=== PATIENT | female | born 1940 | race Caucasian/White ===

== ENCOUNTER → 2017-02-13 | Outpatient (CLI) | END | disposition home or self-care (01) | DX: M25.561 Pain in right knee (principal); M17.11 Unilateral primary osteoarthritis, right knee; M16.11 Unilateral primary osteoarthritis, right hip; Z96.642 Presence of left artificial hip joint; M25.461 Effusion, right knee; I10 Essential (primary) hypertension | CPT/HCPCS: 73502; 73564; G0463 ==

== ENCOUNTER → 2017-04-04 | Outpatient (CLI) | payer MEDICARE, BC ==
[~2017-04-04] MED LIST: LEVE500S9 PO; TRIA1TAB PO
--- NOTE | 2017-04-04 14:15 | RADRPT ---
Vent Rate: 59 bpm RR Interval: 0 msec IL Interval: 132 msec QRS Duration: 130 msec QT Interval: 474 msec QTC Interval: 469 msec P-R-T Collins: 37 - -20 - 92 degrees Sinus bradycardia with premature atrial complexes Left bundle branch block Abnormal ECG Electronically Signed By: Danny Alonzo [id number]
--- NOTE | 2017-04-04 15:59 | RADRPT ---
PROCEDURE: XR Chest. CLINICAL INDICATION: Bronchitis. Atypical chest pain. TECHNIQUE: Two views. Frontal and lateral. COMPARISON: 03/03/2016. FINDINGS: The lungs are clear. The heart size is normal. There is no pleural effusion. There is no pneumothorax. IMPRESSION: 1. Normal chest radiograph. RPTAT: QQ .Doyle Mari MD, MD Date Time Electronically viewed and signed by .Doyle Mari MD, MD on 04/04/2017 15:59 .R/
== END | disposition home or self-care (01) ==
LOC: LAB 12:26
PROVIDERS: ATTEND Internal Medicine
DX: J20.9 Acute bronchitis, unspecified (principal); R07.89 Other chest pain; R00.1 Bradycardia, unspecified; I44.7 Left bundle-branch block, unspecified; R94.31 Abnormal electrocardiogram [ECG] [EKG]
CPT/HCPCS: 71020; 93005

== ENCOUNTER → 2017-04-10 | Outpatient (CLI) | payer MEDICARE, BC | END | disposition home or self-care (01) | LOC: HKI 09:32 | PROVIDERS: ATTEND Orthopaedic Surgery | DX: Z01.818 Encounter for other preprocedural examination (principal); I10 Essential (primary) hypertension; E78.00 Pure hypercholesterolemia, unspecified; M16.11 Unilateral primary osteoarthritis, right hip; Z96.642 Presence of left artificial hip joint | CPT/HCPCS: G0463 ==

== ENCOUNTER 2017-04-18 05:59 | Inpatient (IN) | payer MEDICARE, BC ==
[2017-04-04 13:33] LABS: ADD SCAN DIFF NO
[2017-04-04 13:36] LABS: BASOPHILS % 0.4 % (0.0-2.0); EOSINOPHILS # 0.1 10^3/ul (0.0-0.5); EOSINOPHILS % 1.4 % (0.0-7.0); HEMATOCRIT 39.6 % (37.0-47.0); HEMOGLOBIN 13.2 g/dl (12.0-16.0); LYMPHOCYTES # 1.7 10^3/ul (0.8-2.9); LYMPHOCYTES % 33.8 % (15.0-51.0); MEAN CORPUSCULAR HEMOGLOBIN 29.3 pg (29.0-33.0); MEAN CORPUSCULAR HGB CONC 33.3 g/dl (32.0-37.0); MEAN CORPUSCULAR VOLUME 87.8 fl (82.0-101.0); MONOCYTE # 0.3 10^3/ul (0.3-0.9); MONOCYTES % 6.7 % (0.0-11.0); NEUTROPHIL # 2.8 10^3/ul (1.6-7.5); NEUTROPHILS % 57.5 % (39.0-77.0); PLATELET COUNT 183 10^3/UL (140-415); RED BLOOD COUNT 4.51 10^6/ul (4.20-5.40); RED CELL DISTRIBUTION WIDTH 12.5 % (11.5-14.5); WHITE BLOOD COUNT 4.9 10^3/ul (4.8-10.8)
[2017-04-04 13:45] LABS: ADD UMIC NO; URINE BILIRUBIN (Dip) NEGATIVE (NEGATIVE); URINE BLOOD (Dip) NEGATIVE (NEGATIVE); URINE COLOR LT. YELLOW (YELLOW); URINE GLUCOSE (Dip) NEGATIVE (NEGATIVE); URINE KETONES (Dip) NEGATIVE (NEGATIVE); URINE LEUKOCYTE ESTERASE (Dip) NEGATIVE (NEGATIVE); URINE NITRITE (Dip) NEGATIVE (NEGATIVE); URINE TOTAL PROTEIN (Dip) NEGATIVE (NEGATIVE); URINE UROBILINOGEN (Dip) 0.2 E.U./dL (0.1-1.0)
[2017-04-04 13:53] LABS: INR 1.02; PARTIAL THROMBOPLASTIN TIME 28.1 Sec (25.0-35.0); PROTIME 13.4 Sec (12.2-14.2)
[2017-04-04 13:57] LABS: ALBUMIN 4.3 g/dl (3.3-4.9); ALBUMIN/GLOBULIN RATIO 1.59; BILIRUBIN,INDIRECT 0.3 mg/dl (0-1.1); BILIRUBIN,TOTAL 0.3 mg/dl (0.2-1.3); CALCIUM 10.1 mg/dl (8.4-10.2); CREATININE 0.59 mg/dl (0.44-1.00); POTASSIUM 4.1 mmol/L (3.5-5.1)
--- NOTE | 2017-04-13 17:58 | HP ---
DATE OF ADMISSION: 04/10/2017 HISTORY OF PRESENT ILLNESS: The patient is a 76-year-old lady who is nondiabetic with history of hy perlipidemia; who is being admitted on an elective basis for right total hip replacement per Dr. Vero fitch. The patient has been having persistent recurrent pain, right hip not responding to conservativ e measures. The patient had a left total hip replacement several years ago. REVIEW OF SYSTEMS: HEAD: History of chronic headaches. History of seizures 5 years ago for which he had been put on L evetiracetam 500 mg p.o. b.i.d. no recent seizures. EYES: No blurry vision or glaucoma. ENT: Noncontributory, status post tonsillectomy. NECK: No history of thyroid disease. CHEST: No bronchitis, hay fever, or asthma. The patient does not smoke. CARDIOVASCULAR: No chest pain, palpitations or shortness of breath. Treadmill done 1 year ago was normal. History of hyperlipidemia with statin intolerance. No history of VA or angina. GASTROINTESTINAL: No constipation, diarrhea, change in bowel habits. Colonoscopy 15 years ago. Th e patient has had recent nausea a GI evaluation was negative. GENITOURINARY: No dysuria, hematuria, kidney stones. GENERAL: History of weight loss of about 15 pounds in the last 2 to 3 years intentional, sleep norm al. No history of snoring. SKIN: No history of any lesions. MEDICATIONS: Include; Triamterene 37.5 half tablet p.o. every day Levetiracetam 500 mg p.o. b.i.d., Advil on a p.r.n. basi s. ALLERGIES: MORPHINE TO TAPE AND STATIN INTOLERANCE. FAMILY HISTORY: Negative for diabetes, hypertension in father. Mother had cancer, exact details no t clear. 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 HABITS: Does not smoke or drink. PHYSICAL EXAMINATION The patient is a very pleasant lady in no acute distress. VITAL SIGNS: Blood pressure 130/70, respiratory 20 per minute, pulse 80 per minute regular. HEENT: Head normocephalic. No pallor, cyanosis, or icterus. Tongue is coated, dry. NECK: Supple. No thyromegaly, bruits or lymphadenopathy. LUNGS: Clinically clear. HEART: S1, S2 heard with no definite gallops or murmurs. ABDOMEN: Soft, nontender, no hepatosplenomegaly. EXTREMITIES: No edema. Pedal pulsations 2+ bilaterally. Homans sign is negative. NEUROLOGIC: No localizing or lateralizing signs. PELVIC, RECTAL, BREAST: Deferred at patient's request. LABORATORY DATA: Initial WBC count 4.9, hematocrit 39.6, platelet count of 188,000. Sodium 141, po tassium 4.1, glucose 94, BUN 13, creatinine 0.59. PT/INR 1.02, PTT 28.1. Sed rate 10. UA shows ne gative for glucose and protein, negative for leukocyte esterase. MRSA screen, nares negative for MR SA. EKG shows sinus bradycardia with PACs, left bundle branch block. Chest x-ray shows normal size heart, lung cal[place]oun clear. IMPRESSION: 1. Severe degenerative joint disease of the right hip for total hip replacement per Dr. Kessler. 2. Seizure disorder. PLAN: The patient's overall medical condition is stable. I have discussed the patient's medical st atus with Dr. JOSE ____. Dictated By: MARISA MARTINEZ MD SR/NTS Conf#: [id number] DID#: [id number]
[2017-04-17 09:15] VITALS: BMI 23.0
[2017-04-18] VITALS (26 sets, daily range): BP systolic 98–124; BP diastolic 48–71; PULSE 53–83; RESP 13–23; Ht 157.5 cm; Wt 58.0 kg
[~2017-04-18] VITALS: Ht 157.5 cm; Wt 58.0 kg
[2017-04-18] MEDS ORDERED: CELECOXIB 400 MG PO X1 DOSE PO ONE (06:00)
[2017-04-18] MEDS ORDERED: CEFAZOLIN 2GM/50 ML (PMX) 50 ML X1 BEFORE INCISION IVPB ONE (06:00)
[2017-04-18] MEDS ORDERED: oxyCODONE (CR) 10 MG TAB [oxyCONTIN] X1 DOSE PO ONE (06:00)
[2017-04-18] MEDS ORDERED: BUPIVACAINE LIPOSOME/PF 266 MG/20 ML VIAL INFIL ONE (06:00)
[2017-04-18] MEDS ORDERED: PAIN COCKTAIL-CEFUROXIME IRR ONE ×7 (06:00)
[2017-04-18] MEDS ORDERED: traMADOL 50 MG TAB X 1 DOSE PO ONE (06:00)
[2017-04-18] MEDS ORDERED: TRANEXAMIC ACID 570 MG in SOD CHLORIDE 0.9% 94.3 ML IV ONE (06:00)
[2017-04-18] MEDS ORDERED: PREGABALIN 300 MG PO X1 PO ONE (06:00)
[2017-04-18] MEDS: LACTATED RINGER'S 1,000 ML IV SCH ×5 (06:23→23:05)
[2017-04-18] MEDS ORDERED: VANCOMYCIN 1 GM INJ ONE (06:50)
[2017-04-18] MEDS ORDERED: POLYMYXIN B 500000 UNIT INJ ONE (06:50)
--- NOTE | 2017-04-18 07:11 | HPN ---
Date/Time of Note Date/Time of Note DATE: 04/18/17 TIME: 07:10 Interval H&P Admission Note Pt. seen H&P reviewed: No system changes No changes from H&P on 04/13/17 by HERNANDEZ Longoria MD April 18, 2017 07:10
[2017-04-18] MEDS ORDERED: ONDANSETRON 4 MG INJ ONE (07:13)
[2017-04-18] MEDS ORDERED: GLYCOPYRROLATE 0.4 MG INJ ONE (07:13)
[2017-04-18] MEDS ORDERED: DEXAMETHASONE 4 MG/ML 1 ML INJ ONE (07:13)
[2017-04-18] MEDS ORDERED: FENTAnyl 50 MCG/ML VIAL ONE (07:13)
[2017-04-18] MEDS ORDERED: CEFAZOLIN 1 GM INJ ONE (07:13)
[2017-04-18] MEDS ORDERED: ROCURONIUM 50 MG INJ ONE (07:13)
[2017-04-18] MEDS ORDERED: MIDAZOLAM 1 MG/ML 2 ML INJ ONE (07:13)
[2017-04-18] MEDS ORDERED: PROPOFOL 20 ML ONE (07:13)
[2017-04-18] MEDS ORDERED: NEOSTIGMINE 3 MG/3 ML SYRINGE ONE (07:13)
[2017-04-18] MEDS ORDERED: PROPOFOL 100 ML ONE (08:10)
[2017-04-18] MEDS ORDERED: BACITRACIN 50000 UNITS INJ IRR ONE (08:16)
[2017-04-18] MEDS ORDERED: DIPHENHYDRAMINE 50 MG INJ IV PRN (08:30)
[2017-04-18] MEDS ORDERED: MEPERIDINE 25 MG INJ IV PRN (08:30)
[2017-04-18] MEDS ORDERED: FENTAnyl 50 MCG/ML VIAL IV PRN ×3 (08:30)
[2017-04-18] MEDS ORDERED: ONDANSETRON 4 MG INJ IV PRN ×2 (08:30→10:00)
[2017-04-18] MEDS ORDERED: EPHEDrine SULFATE 50 MG/5 ML SYG IV PRN (08:30)
[2017-04-18] MEDS ORDERED: TRIMETHOBENZAMIDE 100 MG/ML VIAL IM PRN (08:30)
[2017-04-18] MEDS ORDERED: MIDAZOLAM 1 MG/ML 2 ML INJ IV PRN (08:30)
[2017-04-18] MEDS ORDERED: HYDROmorphONE (0.2 MG/ML) 10ML SYG IV PRN ×3 (08:30)
[2017-04-18] MEDS ORDERED: hydrALAzine 20 MG INJ IV PRN (08:30)
[2017-04-18] MEDS ORDERED: LABETALOL HCL 20MG INJ IV PRN (08:30)
[2017-04-18] MEDS: TRANEXAMIC ACID 570 MG in SOD CHLORIDE 0.9% 100 ML IVPB ONE ×3 (09:25)
[2017-04-18] MEDS ORDERED: HYDROmorphONE 1 MG/ML SYG IV PRN (10:00)
[2017-04-18] MEDS ORDERED: DIPHENHYDRAMINE 25 MG CAP PO PRN (10:00)
[2017-04-18] MEDS ORDERED: HYDROCODONE/APAP (5/325) TAB PO PRN (10:00)
[2017-04-18] MEDS ORDERED: BISACODYL 10 MG SUPP PR PRN (10:00)
[2017-04-18] MEDS ORDERED: NACL 0.9% 3 ML SYG IV SCH (10:00)
[2017-04-18] MEDS ORDERED: NA PHOSPHATE/BIPHOS 133 ML ENEMA PR PRN (10:00)
[2017-04-18] MEDS ORDERED: ASPIRIN (EC) 325 MG TAB PO ONE (10:00)
[2017-04-18] MEDS ORDERED: MAGNESIUM HYDROXIDE 30ML CUP PO PRN (10:00)
--- NOTE | 2017-04-18 10:01 | PN ---
Date/Time of Note Date/Time of Note DATE: 04/18/17 TIME: 09:59 Assessment/Plan Lines/Catheters IV Catheter Type (from Nrsg): Peripheral IV Assessment/Plan Assessment/Plan Stable in PACU, s/p right anterior JOSELITO -continue Ancef until drain removed -pain meds as needed -ASA/SCDs for DVT prophylaxis -OOB with PT -check AM labs -monitor drain -d/c razo in AM XR of the right hip is pending at this time Subjective 24 Hr Interval Summary Stable in PACU. Denies pain. Drowsy from anesthesia. Moving lower extremities. Exam/Review of Systems Vital Signs Vitals Vital Signs Date Time Temp Pulse Resp B/P Pulse Ox O2 Delivery O2 Flow Rate FiO2 04/18/17 05:45 98.2 69 124/71 94 Room Air Intake and Output 04/17/17 04/17/17 04/18/17 15:00 23:00 07:00 Intake Total 105.7 ml Balance 105.7 ml Exam Free Text/Dictation Hemovac: minimal Dressing dry Incision clean, dry, and intact without redness or drainage 5/5 Quadriceps, Tibialis Anterior, EHL, Gastroc, Soleus, Peroneals Normal sensation Palpable DT/PT, CR <2 sec No distal edema JEANNETTE CARVAJAL PA-C April 18, 2017 10:01
[2017-04-18] MEDS: CEFAZOLIN 2 GM/50 ML (PMX) 50 ML IVPB SCH ×2 (10:12→17:32)
--- NOTE | 2017-04-18 10:13 | OPR ---
Date/Time of Note Date/Time of Note DATE: 04/18/17 TIME: 10:12 Operative Report Free Text/Dictation Dictation # [id number] Procedure Date: April 18, 2017 Preoperative Diagnosis Right Hip OA Postoperative Diagnosis Same Operation Performed Right Anterior JOSELITO Surgeon: HERNANDEZ AARON MD school psychologist assistant: JEANNETTE CARVAJAL PA-C Anesthesia: general, spinal Anesthesiologist: Navdeep Granados M.D. Estimated Blood Loss: 250 - 300 ml's Specimens Femoral Head Tubes/Drains Hemovac x 1 Complications: None Pt Condition Post Procedure: stable Disposition: PACU HERNANDEZ AARON MD April 18, 2017 10:13
[2017-04-18 10:26] LABS: HEMATOCRIT 28.1 % (37.0-47.0); HEMOGLOBIN 9.9 g/dl (12.0-16.0)
--- NOTE | 2017-04-18 10:44 | OPR ---
DATE OF OPERATION: 04/18/2017 PREOPERATIVE DIAGNOSIS: Right hip osteoarthritis. POSTOPERATIVE DIAGNOSIS: Right hip osteoarthritis. PROCEDURE PERFORMED: Right anterior total hip arthroplasty. SURGEON: Hernandez Kessler MD WATERWORKS CHIEF ENGINEER: CJ Flanagan COMPONENTS USED: DePuy size 52 mm Gription [place] cup, 52/36 neutral AltrX polyethylene liner, on e 6.5 mm screw, size 6 standard ACTIS stem, 36 plus 1.5 ceramic head. ANESTHESIA: Spinal plus general endotracheal intubation, plus periarticular injection. ANESTHESIOLOGIST: Navdeep Granados MD ESTIMATED BLOOD LOSS: 400 mL. INTRAVENOUS FLUIDS: 3 liters crystalloid. SPECIMENS: Femoral head. DRAINS: Hemovac x1. COMPLICATIONS: None. DISPOSITION: The patient tolerated procedure well and was taken to the recovery room in stable cond ition. INDICATIONS: The patient is a 76-year-old woman who has had progressive worsening pain in the right hip with radiographic evidence of severe osteoarthritis. She has failed nonsurgical means of treat ment to control her pain including activity modifications, pain medications and ambulatory assist de vices. Despite these measures, she has had worsening pain and I felt she would benefit from a total hip arthroplasty through an anterior approach. The risks, benefits, and alternatives of the procedure were explained in detail to the patient. I e xplained the risks of the surgery to include, but not be limited to: bleeding and possible need for blood transfusion; infection; pain; stiffness; neurovascular injury with possible numbness, weakness , and/or paralysis anywhere from the hip down to the toes; fracture; instability; dislocation; leg l ength inequality; wear and/or loosening of the prosthesis and possible need for future revision; blo od clots; pulmonary embolism; and anesthetic complications such as heart attack, stroke, GI bleed, p neumonia, and/or . Ample time was allowed for the patient to ask questions, all of which were addressed and answered. The patient understood the risks involved and wished to proceed. Informed c onsent was signed prior to the procedure. PROCEDURE: The patient's right hip was initialed with a marking pen in the preoperative area to iden tify the correct operative site. The patient was brought to the operating room and transferred [facility] the [facility] to the [facility] where a spinal anesthetic was administered. The patient was then anesthetized and intubated. A Naidu catheter was placed. Both feet were placed into well padd ed boots which were then placed into the leg holders of the traction booms. A timeout was performed to confirm that the right side was the correct operative site. The patient was given 2 g of intrav enous Ancef within one hour prior to the procedure. The operative hip was prepped and draped in the usual sterile fashion. A 10 cm oblique incision was made over the anterior aspect of the hip and carried down through subcu taneous tissue and fat with sharp dissection. The tensor fascia del was incised along the length o f the wound. The tensor fascia muscle was retracted laterally and the sartorius medially. The anter ior circumflex vessels were identified and tied off with 2-0 silk suture and coagulated with the [employer] anthony Link facing end trimmer. The rectus femoris was elevated off the anterior capsule and an anterior capsu lectomy performed. A femoral neck osteotomy was made and the head removed from the acetabulum. The acetabulum was denuded of cartilage circumferentially, as was the femoral head. Retractors were pl aced around the acetabulum. The remnants of the labrum and ligamentum teres were excised. I reamed the acetabulum to the medial wall and then went into an anatomic position and increased the reamer size in 2 mm increments until I got a good bite and was down to bleeding subchondral bone. The [place] cup was opened and impacted into the acetabulum and sat flush circumferentially, gettin g a good bite. C-arm imaging showed it had about 40 to 45 degrees of abduction and 20 degrees of ant eversion. Please note 1 acetabular screw was placed. The real liner was opened and impacted into t he acetabulum and sat flush circumferentially. Attention was turned towards the femur. The operative leg was carefully lowered to the floor with the leg adducted. The foot was then exter susan rotated to approximately 110 degrees. A posteromedial release was performed to optimize expos ure. The femoral hook was placed underneath the proximal femur and the hydraulic lift was then used to elevate the femur up out of the wound. The inocencio cutter osteotome was used to remove the remai demarco overhanging greater trochanter. The femur was then broached, going up in one size increments u ntil it sat flush with the neck cut and a stable fit was achieved. The trial neck and head were ass embled and reduced into the acetabulum. Fluoroscopic imaging showed the components to be in good pos ition and the leg lengths and offsets to be equal. At this point, the trial was dislocated and the trial broach removed. The canal was irrigated and d ried. The real stem was opened and impacted into the femur. The trunnion was irrigated and dried, a nd the real femoral head was impacted onto the trunnion, and reduced into the acetabulum. The soft tissues were infiltrated with a mixture of 150 mg of 0.5% bupivacaine, 8 mg of Duramorph, 3 00 mcg of epinephrine, 30 mg of Toradol, 100 mcg of clonidine, 750 mg of cefuroxime and 86 mL of nor mal saline, followed by an injection of 266 mg of liposomal bupivacaine. At this point the hip was irrigated with a mixture of Betadine/saline and then antibiotic saline with pulsatile lavage. A Hem ovac drain was placed in the deep portion of the wound and brought out the anterolateral thigh. Ther e was good hemostasis. The tensor fascia del was repaired with a running #1 Vicryl. The deep fat layer was irrigated and closed with 2-0 Stratafix and the subcutaneous layer closed with 3-0 Vicryl and the skin was closed with ross and then sealed with Dermabond. The drain was secured with 3-0 nylon. The sponge and needle counts were correct at the end of the case. The wound was covered with an occ lusive dressing. The patient was awakened, extubated, and taken to the recovery room in stable cond ition. Dictated By: HERNANDEZ CLEARY/NONA Conf#: [id number] DID#: [id number]
[2017-04-18 10:47] LABS: CALCIUM 8.6 mg/dl (8.4-10.2); CREATININE 0.54 mg/dl (0.44-1.00); POTASSIUM 3.2 mmol/L (3.5-5.1)
--- NOTE | 2017-04-18 11:02 | RADRPT ---
PROCEDURE: XR Pelvis. CLINICAL INDICATION: Recent right hip arthroplasty TECHNIQUE: Single AP view of the pelvis. COMPARISON: 02/13/2017 FINDINGS: There is a recent right hip arthroplasty in place with anatomic alignment. No acute fracture or dis location is seen. Postsurgical skin ross and soft tissue gas and drainage catheter is seen. Rem ainder of the pelvis appears intact without evidence of fractures or dislocation. Prior left hip to abel arthroplasty is noted.. Sacroiliac joints and pubic symphysis are unremarkable. IMPRESSION: Recent right hip arthroplasty. Old left hip arthroplasty. RPTAT: JJ .Roc Diez MD, Date Time Electronically viewed and signed by .Roc Diez MD, on 04/18/2017 11:01 .Morro/
[2017-04-18] MEDS: traMADol 50 MG TAB PO SCH ×3 (11:35→23:03)
[2017-04-18] MEDS ORDERED: EXPAREL NOTE (BUPIVICAINE LIPOSOMAL) XX SCH (12:00)
--- NOTE | 2017-04-18 12:05 | RADRPT ---
PROCEDURE: Right hip series CLINICAL INDICATION: Right hip arthroplasty TECHNIQUE: Single AP view of the right hip is submitted COMPARISON: 02/13/2017 FINDINGS: There has been recent right hip arthroplasty with anatomic alignment. No evidence of fractures or d islocation.. Postsurgical changes with skin ross, drainage catheter and soft tissue gas are prese nt. Visualized portions of the pelvis are intact. IMPRESSION: Recent right hip arthroplasty. RPTAT: JJ .Roc Diez MD, MD Date Time Electronically viewed and signed by .Roc Diez MD, MD on 04/18/2017 12:04 .L/
--- NOTE | 2017-04-18 12:06 | RADRPT ---
PROCEDURE: Fluoroscopy CLINICAL INDICATION: XR Hip in Surgery Right TECHNIQUE: 0.8 minutes fluoroscopic time utilized by Dr. AARON for procedure. 16 images/sequences of are submitted. COMPARISON: None FINDINGS: Right hip total arthroplasty in progress is demonstrated. Old left hip arthroplasty in place. IMPRESSION: Fluoroscopy utilized by Dr. AARON for right hip arthroplasty Please see procedural report for complete details. RPTAT: JJ .Roc Diez MD, MD Date Time Electronically viewed and signed by .Roc Diez MD, on 04/18/2017 12:05 .L/
[2017-04-18] MEDS ORDERED: TRANEXAMIC ACID 580 MG in SOD CHLORIDE 0.9% 100 ML IVPB ONE ×2 (13:00→16:00)
[2017-04-18] MEDS ORDERED: POTASSIUM CHLORIDE (SR) 20 MEQ TAB PO STA (16:37)
[2017-04-18] MEDS: PANTOPRAZOLE (EC) 40 MG TAB PO SCH (17:32)
[2017-04-18] MEDS: DOCUSATE SODIUM 100 MG CAP PO SCH (20:28)
[2017-04-18] MEDS: LEVETIRACETAM (100 MG/ML) 5ML CUP PO SCH (20:29)
[2017-04-18] MEDS ORDERED: POTASSIUM CHLORIDE (SR) 20 MEQ TAB PO ONE (21:00)
--- NOTE | 2017-04-18 22:17 | PN ---
DATE: SUBJECTIVE: Detailed previous history reviewed. The patient was examined. The patient is status p ost right anterior total hip arthroplasty by Dr. Kessler. The patient was seen postop. The patient appears comfortable, complains of mild blurry vision which is improving. Denies any chest pain or s hortness of breath. PHYSICAL EXAMINATION: VITAL SIGNS: The patient is afebrile. Blood pressure 123/60. O2 saturation is 100% on 2 L nasal c annula. HEAD: Normocephalic. Mild pallor without cyanosis. CHEST: Clinically clear. HEART: S1, S2 with no definite gallops. EXTREMITIES: No edema. Homans negative. LABORATORY: WBC count ____, hematocrit 39.6 on 04/04, and repeat hemoglobin is 9.9 with hematocrit 28.1 today. Sodium 136, potassium 3.2, BUN 10, creatinine 0.54. IMPRESSION: 1. Severe degenerative joint disease of the right hip, status post right total hip replacement. 2. Seizure disorder. 3. Mild anemia. 4. Hypokalemia. PLAN: Will replace potassium levels. Recheck potassium and magnesium and hematocrit in a.m. The p atient has been on Keppra, continue the same. Seizure precautions. Dictated By: MARISA MARTINEZ MD SR/NTS Conf#: [id number] DID#: [id number]
[2017-04-19] MEDS: CEFAZOLIN 2 GM/50 ML (PMX) 50 ML IVPB SCH (01:08)
[2017-04-19 05:06] LABS: HEMATOCRIT 26.7 % (37.0-47.0); HEMOGLOBIN 9.3 g/dl (12.0-16.0)
[2017-04-19 05:25] LABS: POTASSIUM 4.5 mmol/L (3.5-5.1)
[2017-04-19 05:27] LABS: CREATININE 0.67 mg/dl (0.44-1.00)
[2017-04-19 05:28] LABS: CALCIUM 8.9 mg/dl (8.4-10.2)
[2017-04-19] MEDS: PANTOPRAZOLE (EC) 40 MG TAB PO SCH ×2 (05:28→17:28)
[2017-04-19] MEDS: traMADol 50 MG TAB PO SCH ×3 (05:28→17:29)
[2017-04-19 05:39] LABS: CHOL/HDL RATIO 3.2 RATIO
[2017-04-19 05:40] VITALS: BP 116/56; PULSE 67; RESP 18
[2017-04-19 07:00] VITALS: BP 110/56; RESP 16
[2017-04-19] MEDS: HYDROCODONE/APAP (5/325) TAB PO PRN ×2 (07:42→21:35)
[2017-04-19] MEDS: DOCUSATE SODIUM 100 MG CAP PO SCH ×2 (08:26→19:57)
[2017-04-19] MEDS: LEVETIRACETAM (100 MG/ML) 5ML CUP PO SCH ×2 (08:26→19:57)
[2017-04-19] MEDS: ASPIRIN (EC) 325 MG TAB PO SCH ×2 (08:26→19:57)
[2017-04-19] MEDS: CELECOXIB 200 MG CAP PO SCH (08:27)
--- NOTE | 2017-04-19 08:40 | PN ---
Date/Time of Note Date/Time of Note DATE: 04/19/17 TIME: 08:38 Assessment/Plan Lines/Catheters IV Catheter Type (from Nrsg): Peripheral IV Naidu in Place (from Nrsg): Yes Assessment/Plan Assessment/Plan Stable POD #1, s/p right anterior JOSELITO -d/c Ancef -pain meds as needed -ASA/SCDs for DVT prophylaxis -OOB with PT -check AM labs -drain removed -discharge planning. Will plan to go home upon discharge Subjective 24 Hr Interval Summary No acute overnight events. Having minimal pain. Started PT yesterday. H&H dropped slightly but will monitor for now. VSS, afebrile. Will plan to go home upon discharge. Exam/Review of Systems Vital Signs Vitals Vital Signs Date Time Temp Pulse Resp B/P Pulse Ox O2 Delivery O2 Flow Rate FiO2 04/19/17 07:00 98.8 75 16 110/56 100 04/19/17 05:40 Nasal Cannula 2.0 Intake and Output 04/18/17 04/18/17 04/19/17 15:00 23:00 07:00 Intake Total 3311.5 ml 1215.8 ml 1750 ml Output Total 550 ml 1000 ml 1500 ml Balance 2761.5 ml 215.8 ml 250 ml Exam Free Text/Dictation Hemovac: 200cc Dressing dry Incision clean, dry, and intact without redness or drainage 03/31 Quadriceps, Tibialis Anterior, EHL, Gastroc, Soleus, Peroneals Normal sensation Palpable DT/PT, CR <2 sec No distal edema Results Result Diagram: 04/19/17 0415 04/19/17 0415 JEANNETTE CARVAJAL PA-C April 19, 2017 08:40
[2017-04-19] MEDS: LACTATED RINGER'S 1,000 ML IV SCH ×2 (09:24→16:50)
[2017-04-19] MEDS: TRIAMTERENE/HCTZ (37.5/25) TAB PO SCH (09:26)
[2017-04-19] MEDS ORDERED: MAGNESIUM SULFATE 2 GM/50 ML 50 ML IVPB ONE (11:00)
--- NOTE | 2017-04-19 13:50 | PN ---
DATE: SUBJECTIVE: The patient overall feels better. Drains have been removed status post right anterior JOSELITO. OBJECTIVE: VITAL SIGNS: Temperature 97.9, blood pressure 116/56, O2 saturation is 100% on 2 liters nasal cannu la. HEENT: Mild pallor without cyanosis. Tongue coated, dry. NECK: Supple. No thyromegaly, bruits or lymphadenopathy. LUNGS: Clinically clear. HEART: S1, S2 heard with no definite gallops. EXTREMITIES: No edema. Homans sign is negative. LABORATORY DATA: Hemoglobin is 9.3, hematocrit 26.7. Potassium 4.5 after replacement. Magnesium i s 1.8. Glucose of 172. LDL 105. IMPRESSION: 1. Status post right total hip replacement (anterior). 2. Moderate anemia. 3. Seizure disorder. 4. Hypokalemia, resolved. 5. Borderline magnesium levels. PLAN: Replace magnesium levels and repeat CBC and BMP in a.m. along with magnesium. Orthopedic rec ommendations per Dr. Kessler. Dictated By: MARISA MARTINEZ MD, SR/NONA Conf#: [id number] DID#: [id number]
[2017-04-19 20:42] VITALS: BP 128/58; RESP 20
[2017-04-20] MEDS: LACTATED RINGER'S 1,000 ML IV SCH ×3 (01:49→17:49)
[2017-04-20 05:14] LABS: ADD SCAN DIFF NO
[2017-04-20 05:22] LABS: ABNORMAL IP MESSAGE 1; HEMATOCRIT 28.1 % (37.0-47.0); HEMOGLOBIN 9.2 g/dl (12.0-16.0); MEAN CORPUSCULAR HEMOGLOBIN 29.7 pg (29.0-33.0); MEAN CORPUSCULAR HGB CONC 32.7 g/dl (32.0-37.0); MEAN CORPUSCULAR VOLUME 90.6 fl (82.0-101.0); MEAN PLATELET VOLUME 13.1 fl (7.4-10.4); PLATELET COUNT 117 10^3/UL (140-415); RED CELL DISTRIBUTION WIDTH 13.2 % (11.5-14.5); WHITE BLOOD COUNT 7.7 10^3/ul (4.8-10.8)
[2017-04-20] MEDS: PANTOPRAZOLE (EC) 40 MG TAB PO SCH ×2 (05:37→18:22)
[2017-04-20] MEDS: traMADol 50 MG TAB PO SCH ×4 (05:38→18:22)
[2017-04-20 06:10] LABS: CALCIUM 8.9 mg/dl (8.4-10.2); CREATININE 0.6 mg/dl (0.44-1.00)
[2017-04-20 08:03] VITALS: BP 116/59; RESP 18
[2017-04-20] MEDS: CELECOXIB 200 MG CAP PO SCH (08:37)
[2017-04-20] MEDS: DOCUSATE SODIUM 100 MG CAP PO SCH ×2 (08:37→20:21)
[2017-04-20] MEDS: LEVETIRACETAM (100 MG/ML) 5ML CUP PO SCH ×2 (08:37→20:21)
[2017-04-20] MEDS: ASPIRIN (EC) 325 MG TAB PO SCH ×2 (08:37→20:21)
[2017-04-20] MEDS: TRIAMTERENE/HCTZ (37.5/25) TAB PO SCH (08:38)
[2017-04-20 09:04] LABS: EOSINOPHILS % 0.8 % (0.0-7.0); LYMPHOCYTES % 18.7 % (15.0-51.0); MONOCYTES % 10.1 % (0.0-11.0); NEUTROPHILS % 69.8 % (39.0-77.0)
[2017-04-20 09:05] LABS: BASOPHILS % 0.3 % (0.0-2.0); EOSINOPHILS # 0.1 10^3/ul (0.0-0.5); LYMPHOCYTES # 1.4 10^3/ul (0.8-2.9); MONOCYTE # 0.8 10^3/ul (0.3-0.9); NEUTROPHIL # 5.4 10^3/ul (1.6-7.5); TOTAL CELLS COUNTED % 100
[2017-04-20] MEDS ORDERED: MAGNESIUM CITRATE 300 ML BTL PO ONE (14:00)
[2017-04-20] MEDS: HYDROCODONE/APAP (5/325) TAB PO PRN (16:16)
--- NOTE | 2017-04-20 17:58 | PN ---
Date/Time of Note Date/Time of Note DATE: 04/20/17 TIME: 17:57 Assessment/Plan Lines/Catheters IV Catheter Type (from Nrsg): Saline Lock Naidu in Place (from Nrsg): Yes Assessment/Plan Assessment/Plan Stable POD #2, s/p right anterior JOSELITO -pain meds as needed -ASA/SCDs -OOB with PT -check AM labs -dressing changed -likely will go home tomorrow Subjective 24 Hr Interval Summary No acute overnight events. Pain well controlled with pain medicine. Progressing with PT. VSS, afebrile. Will plan to go home tomorrow. Exam/Review of Systems Vital Signs Vitals Vital Signs Date Time Temp Pulse Resp B/P Pulse Ox O2 Delivery O2 Flow Rate FiO2 04/20/17 08:36 98.8 04/20/17 08:03 82 18 116/59 96 04/19/17 05:40 Nasal Cannula 2.0 Intake and Output 04/19/17 04/19/17 04/20/17 15:00 23:00 07:00 Intake Total 300 ml 560 ml 850 ml Output Total 450 ml 1200 ml Balance 300 ml 110 ml -350 ml Exam Free Text/Dictation Dressing dry Incision clean, dry, and intact without redness or drainage 03/31 Quadriceps, Tibialis Anterior, EHL, Gastroc, Soleus, Peroneals Normal sensation Palpable DT/PT, CR <2 sec No distal edema Results Result Diagram: 04/20/1742704/20/17427 JEANNETTE CARVAJAL PA-C April 20, 2017 17:58
[2017-04-20 19:49] VITALS: BP 113/59; RESP 19
--- NOTE | 2017-04-20 20:28 | PDOCDIS ---
Discharge Instructions DIAGNOSIS Discharge Diagnosis: s/p right anterior JOSELITO CONDITION Patient Condition: Good HOME CARE INSTRUCTIONS: Diet Instructions: RegularSpecial Diet: REGULAR ACTIVITY: Activity Restrictions: Slowly Increase Activity Rest between Activity Avoid heavy lifting Do not Drive Do not operate Machinery Do not operate Power Tool Avoid Heavy Housework Bathing Restrictions: ShowerActivity Restrictions Comment: waterproof surgical dressing please REFERRALS Agency Name and Phone Number: [facility] [phone] OTHER ORDERS: Other Orders: S/P Anterior JOSELITO Physical Therapy: Three times per week at home x 2 weeks Daily in Rehab/SNF WB STATUS: WBAT Strengthening exercises for both upper and un-operated lower extremities. 1. Gait training with front wheeled walker 2. Wide base gait, no pivot turns. 3. Abductor strengthening. 4. Quadriceps and hamstring strengthening. 5. May switch to cane in contra lateral hand 6 weeks after surgery. 6. Physical Therapy can open case if nursing is not available. 7. Ice Packs while at rest to surgical wound for 20 minutes, 3 times/day. 8. Patient requires mobile SCDs to reduce risk of developing DVT following JOSELITO. Patient will use the mobile SCDs for 30 days postoperatively. Hip Precautions: No posterior hip precautions. Bathing assistance by home health aide twice weekly if Medicare patient. Occupational Therapy: Evaluation for assistive devices and ADL training. Wound Care: Keep incision dry & covered with Tegaderm until first visit with Dr. Kessler Anticoagulation Orders: Enteric Coated Aspirin 325 mg po bid x 6 weeks from date of surgery Follow-up:Call for an appointment with Dr. Kessler in 1 week after discharged from hospital at DME Orders: DESTINEE, 3-in-1 Commode, Mobile SCDs JEANNETTE CARVAJAL PA-C April 20, 2017 20:28
[2017-04-20] MEDS ORDERED: PANT40TA4 PO (20:29)
[2017-04-20] MEDS ORDERED: ASPI325T32 PO (20:29)
[2017-04-20] MEDS ORDERED: TRAM50TA2 PO (20:29)
[2017-04-20] MEDS ORDERED: HYDR-3498 PO (20:29)
[2017-04-21] MEDS: traMADol 50 MG TAB PO SCH ×3 (00:58→11:31)
[2017-04-21] MEDS: LACTATED RINGER'S 1,000 ML IV SCH ×2 (01:49→09:49)
[2017-04-21 04:56] LABS: HEMATOCRIT 28.8 % (37.0-47.0); HEMOGLOBIN 9.5 g/dl (12.0-16.0)
[2017-04-21 05:18] LABS: CALCIUM 8.7 mg/dl (8.4-10.2); CREATININE 0.57 mg/dl (0.44-1.00); POTASSIUM 4.7 mmol/L (3.5-5.1)
[2017-04-21] MEDS: PANTOPRAZOLE (EC) 40 MG TAB PO SCH (06:18)
[2017-04-21 08:04] VITALS: BP 115/62; RESP 18
--- NOTE | 2017-04-21 08:08 | PN ---
DATE: 04/20/2017 SUBJECTIVE: The patient overall feels better. Denies any chest pain or shortness of breath. Compl ains of being constipated. PHYSICAL EXAMINATION: GENERAL: The patient is awake, alert. VITAL SIGNS: Temperature 99.2, blood pressure 116/59, O2 saturation 96% on room air. LUNGS: Clinically clear. HEART: S1, S2 with no gallops. EXTREMITIES: No edema. Homans sign is negative. LABORATORY DATA: WBC count is 7.7, hematocrit 28.1, platelet count of 117,000. Sodium 130, potassi um 5, BUN 11, creatinine 0.6, magnesium 2.1. IMPRESSION: 1. Status post right total hip replacement, anterior approach. 2. Moderate anemia, stable. 3. Seizure disorder. 4. Hypokalemia, resolved. 5. Constipation secondary to narcotic analgesia. PLAN: Recommend magnesium citrate p.o. 1 dose. Continue recommendations per Dr. Kessler. The patie nt has been advised to take iron sulfate p.o. and then get a repeat CBC done with PMD in 1 month. Dictated By: MARISA MARTINEZ MD SR/NTS Conf#: [id number] DID#: [id number]
[2017-04-21] MEDS: DOCUSATE SODIUM 100 MG CAP PO SCH (08:40)
[2017-04-21] MEDS: LEVETIRACETAM (100 MG/ML) 5ML CUP PO SCH (08:40)
[2017-04-21] MEDS: CELECOXIB 200 MG CAP PO SCH (08:40)
[2017-04-21] MEDS: ASPIRIN (EC) 325 MG TAB PO SCH (08:41)
[2017-04-21] MEDS: TRIAMTERENE/HCTZ (37.5/25) TAB PO SCH (08:42)
--- NOTE | 2017-04-21 09:35 | PN ---
DATE: 04/21/2017 SUBJECTIVE: Patient denies any pain. Ambulating well. No calf pain. No shortness of breath or ch est pain. PHYSICAL EXAMINATION: GENERAL: The patient is awake, alert, in no acute distress. VITAL SIGNS: Blood pressure 159/62, temperature 98. CHEST: Clinically clear. HEART: S1, S2 heard, with no definite gallops. ABDOMEN: Soft, nontender. EXTREMITIES: No edema. Homans sign is negative. LABORATORY: Hematocrit 28.8, potassium 4.7. IMPRESSION: 1. Status post right total hip replacement, with moderate anemia. 2. Seizure disorder. The patient is being discharged today. The patient has been advised by Dr. Kessler to take aspirin 3 25 mg b.i.d. Will advise the patient to take a proton pump inhibitor, namely Protonix 40 mg p.o. augusto koch. Will discuss with PMD. Have a followup CBC in 2 weeks. Dictated By: MARISA MARTINEZ MD, SR/NONA Conf#: [id number] DID#: [id number]
--- NOTE | 2017-04-21 09:56 | PN ---
Date/Time of Note Date/Time of Note DATE: 04/21/17 TIME: 09:54 Assessment/Plan Lines/Catheters IV Catheter Type (from Nrsg): Saline Lock Naidu in Place (from Nrsg): Yes Assessment/Plan Assessment/Plan Stable POD #3, s/p right anterior JOSELITO -pain meds as needed -ASA/SCDs for DVT prophylaxis -OOB with PT -dressing changed -discharge home today -follow up in the office in 1 week Subjective 24 Hr Interval Summary No acute overnight events. Denies significant pain. Progressing with PT. VSS, afebrile. Will plan to go home today. Exam/Review of Systems Vital Signs Vitals Vital Signs Date Time Temp Pulse Resp B/P Pulse Ox O2 Delivery O2 Flow Rate FiO2 04/21/17 08:04 98.0 82 18 115/62 94 04/19/17 05:40 Nasal Cannula 2.0 Intake and Output 04/20/17 04/20/17 04/21/17 15:00 23:00 07:00 Intake Total 1140 ml 800 ml Output Total 750 ml Balance 1140 ml 50 ml Exam Free Text/Dictation Dressing dry Incision clean, dry, and intact without redness or drainage 03/31 Quadriceps, Tibialis Anterior, EHL, Gastroc, Soleus, Peroneals Normal sensation Palpable DT/PT, CR <2 sec No distal edema Results Result Diagram: 04/21/17 0415 04/21/17 0415 JEANNETTE CARVAJAL PA-C April 21, 2017 09:56
--- NOTE | 2017-04-21 12:30 | DS ---
DATE OF ADMISSION: 04/18/2017 DATE OF DISCHARGE: 04/21/2017 CONDITION ON DISCHARGE: Stable ADMITTING DIAGNOSIS: Right hip osteoarthritis. DISCHARGE DIAGNOSIS: Status post right anterior total hip arthroplasty. PROCEDURE PERFORMED: Right anterior total hip arthroplasty. HOSPITAL COURSE: This is a 76-year-old female who was seen in the clinic initially complaining of r ight knee pain. X-rays were obtained and demonstrated advanced osteoarthritis of the right hip and it was thought she would benefit from right anterior total hip arthroplasty. On 04/18/2017, the tonny romo was admitted and taken to the operating room where she underwent a right anterior total hip art hroplasty. There were no intraoperative complications. The patient tolerated the procedure well. She was taken to the recovery room in stable condition. Pain was well controlled with oral pain med ication. She was started on aspirin and SCDs for DVT prophylaxis. She remained hemodynamically sta ble and neurovascularly intact throughout her hospital stay. She began physical therapy during her hospital course and continued to make good progress. Ultimately, she was deemed stable for discharg e on postoperative day #3. Prior to discharge, the incision was inspected and noted to be clean, dr y and intact. Dressing changes were done prior to the patient going home. LABORATORY ANALYSIS: Hemoglobin 9.5, hematocrit 28.8. Chemistry panel was essentially within john paul l limits. DISCHARGE MEDICATIONS: 1. [place] 5/325 mg. 2. Tramadol 50 mg 3. Aspirin 325 mg. 4. Protonix 40 mg. Additionally, the patient should resume all of her normal home medications. DISCHARGE INSTRUCTIONS: The patient will be discharged home in stable condition. She is to resume a normal diet. She is weightbearing as tolerated on the right lower extremity. She will begin phys ical therapy with home health. She is to take the medications noted above and resume all of her nor mal home medications. The patient is to call the office or go to the emergency room for any concern s including increased redness, swelling, drainage, fever or any concern regarding the operation or s ite of incision. FOLLOWUP: The patient is to follow up in the office on 04/28/2017. Dictated By: JEANNETTE DIAZ/NONA Conf#: [id number] DID#: [id number]
== END 2017-04-21 12:40 | disposition home health service (06) | DRG 470 ==
LOC: REC 05:59 → MS1 11:07
PROVIDERS: ADMIT Orthopaedic Surgery; ATTEND Orthopaedic Surgery
PROC: 0SR904A Replacement of Right Hip Joint with Ceramic on Polyethylene Synthetic Substitute, Uncemented, Open Approach (ICD-10-PCS; principal; 2017-04-18 07:00)
DX: M16.11 Unilateral primary osteoarthritis, right hip (principal); G40.909 Epilepsy, unspecified, not intractable, without status epilepticus; D64.9 Anemia, unspecified; E78.5 Hyperlipidemia, unspecified; E87.6 Hypokalemia; K59.03 Drug induced constipation; T40.605A Adverse effect of unspecified narcotics, initial encounter; Y92.230 Patient room in hospital as the place of occurrence of the external cause
CPT/HCPCS: 72170; 73500; 73530; 80048; 80053; 80061; 81003; 83735; 85014; 85018; 85025; 85610; 85651; 85730; 86850; 86900; 86901; 86920; 87081; 87086; 88304; 88311; 97003; 97110; 97116; 97162; 97166; 97530; 97535; C1713; C1776; C9290; J0171; J0690; J0697; J0735; J1100; J1170; J1885; J2250; J2274; J2405; J2710; J3010; J3370; J3475; J7120

== ENCOUNTER → 2017-04-28 | Outpatient (CLI) | payer MEDICARE, BC ==
[~2017-04-28] MED LIST changes: +ASPI325T32 PO; +HYDR-3498 PO; +PANT40TA4 PO; +TRAM50TA2 PO
--- NOTE | 2017-04-28 10:51 | RADRPT ---
PROCEDURE: XR pelvis/right hip. CLINICAL INDICATION: Hip pain TECHNIQUE: AP pelvis/lateral right hip view available for review. COMPARISON: No prior studies are available for comparison. FINDINGS: There are bilateral total hip replacements. There are skin ross lateral to the right hip. There is normal mineralization, architecture and alignment. There is no evidence of loosening of th e prosthesis. There is no evidence of hardware failure. No fractures, dislocation or osseous lesions are identified. The joints are unremarkable. There are normal soft tissues. IMPRESSION: Bilateral total hip replacements. Otherwise unremarkable examination. RPTAT: HGDB .Kavin Munoz MD, Date Time Electronically viewed and signed by .Kavin Munoz MD, on 04/28/2017 10:50 .B/
== END | disposition home or self-care (01) ==
LOC: HKI 09:58
PROVIDERS: ATTEND Orthopaedic Surgery
DX: Z47.1 Aftercare following joint replacement surgery (principal); M16.11 Unilateral primary osteoarthritis, right hip; Z96.641 Presence of right artificial hip joint
CPT/HCPCS: 73502

== ENCOUNTER → 2017-05-26 | Outpatient (CLI) | payer MEDICARE, BC ==
--- NOTE | 2017-05-27 11:04 | RADRPT ---
PROCEDURE: XR Hip and pelvis. CLINICAL INDICATION: Pain TECHNIQUE: AP pelvis and frog lateral views of the right hip, were performed. COMPARISON: April 28, 2017 FINDINGS: There are bilateral total hip arthroplasties. There are no findings of fracture, dislocation, or gaona rdware failure. No findings of hardware loosening are seen. Alignment is anatomic. The sacroiliac and pubis symphysis joints are intact. Overall, there is no interval change. IMPRESSION: Bilateral total hip arthroplasties. No acute fracture or dislocation. No findings of hardware fail ure. Anatomic alignment. RPTAT: EE .Mitali Avila MD, MD Date Time Electronically viewed and signed by .Mitali Avila MD, on 05/27/2017 11:04 .F/
== END | disposition home or self-care (01) ==
LOC: HKI 13:09
PROVIDERS: ATTEND Orthopaedic Surgery
DX: Z47.1 Aftercare following joint replacement surgery (principal); Z96.643 Presence of artificial hip joint, bilateral; M25.551 Pain in right hip
CPT/HCPCS: 73502

== ENCOUNTER → 2017-07-07 | Outpatient (CLI) | payer MEDICARE, BC ==
[~2017-07-07] MED LIST changes: +LEVE500S8 PO; -LEVE500S9 PO
--- NOTE | 2017-07-07 15:55 | RADRPT ---
PROCEDURE: XR Right hip and pelvis. CLINICAL INDICATION: Right hip pain. Pelvic pain. Postop. TECHNIQUE: Three views. Frontal pelvis. Frontal and lateral right hip. COMPARISON: 05/26/2017. FINDINGS: There is no fracture or dislocation. The soft tissues are normal. There is a right hip total arthroplasty which appears satisfactory. There is a left hip total arthroplasty which appears satisfactory. There is no lytic or blastic lesion. The upper pelvis is not completely included on the image. IMPRESSION: 1. Satisfactory postoperative appearance of both hips. 2. Otherwise unremarkable images of the right hip and pelvis. RPTAT: QQ .Doyle Mari MD, MD Date Time Electronically viewed and signed by .Doyle Mari MD, MD on 07/07/2017 15:54 .R/
== END | disposition home or self-care (01) ==
LOC: HKI 13:29
PROVIDERS: ATTEND Orthopaedic Surgery
DX: Z47.1 Aftercare following joint replacement surgery (principal); M16.11 Unilateral primary osteoarthritis, right hip; Z96.641 Presence of right artificial hip joint
CPT/HCPCS: 73502